=== PATIENT | female | born 1990 | race Caucasian/White ===

== ENCOUNTER 2017-02-03 06:30 | Emergency (ER) | payer OTHER ==
--- NOTE | ~2017-02-03 | CT2 ---
[facility] A Service of [facility] & [facility] RADIOLOGY TEXT RESULTS PATIENT: WALLY GUAJARDO LOCATION: [facility] : [birth year] UNIT #: [id number] AGE: [address]: Jose Calvin MD SEX: F ORDER DR: [id number] [facility] [address] [place], [place] [address] [id number] E MR#: [id number] Acc #: [id number] NAME: WALLY GUAJARDO : 1990 SEX: F STUDY DATE/TIME: 02/03/2017 7:48 UNIT: [facility] ROOM: STUDY DESCRIPTION: CT Abd and Pelv W Cont Attending Physician: Jose Calvin M.D. Ordering Physician: France Sanabria A.P.R.N. Primary Care Physician: Chen Martino M.D. MEDICAL IMAGING REPORT This report is preliminary unless electronic signature is present EXAM CT abdomen and pelvis with contrast 02/03/2017 HISTORY 26-year-old female with right lower quadrant abdominal pain, nausea, vomiting, diarrhea, dizziness, loss of appetite. Patient states symptoms began Monday but are getting worse. The patient weighs [address] abdomen and pelvis with contrast 10/12/2016. PROCEDURE 5 mm axial images from the lung bases through the lesser trochanters after intravenous contrast administration. Enteric contrast was not administered. Sagittal and coronal reformatted images were obtained. This CT examination was performed with one or more of the following radiation dose reduction techniques: automatic exposure control, adjustment of mA and/or kV according to patient size, and iterative reconstruction. FINDINGS ABDOMEN: The study is limited and attenuated by the patient's body habitus. The lung bases appear clear. The liver is diffusely and severely steatotic and is enlarged up to 23.3 cm craniocaudally, without significant change. No focal liver lesions are identified. The gallbladder is surgically absent. No biliary dilation is seen. The spleen, pancreas, adrenals and kidneys are within normal limits. The appendix is not visualized, but no pericecal inflammation is seen. Limited evaluation of bowel due to lack of enteric contrast but no focal bowel inflammatory changes are identified. There is no evidence of high-grade bowel obstruction. [facility]. [facility] A Service of [facility] & [facility] RADIOLOGY TEXT RESULTS PATIENT: WALLY GUAJARDO LOCATION: [facility] : [birth year] UNIT #: [id number] AGE: [address]: Jose Calvin MD SEX: F ORDER DR: PELVIS: 3.8 cm left ovarian cyst or cystic lesion is stable since 10/12/2016. The uterus, urinary bladder and rectum are normal. No pelvic free fluid. Degenerative disc and endplate changes are present at L5-S1. No acute or suspicious osseous abnormalities are identified. IMPRESSION 1. No acute findings are seen within the abdomen or pelvis to explain the patient's right lower quadrant abdominal pain. The appendix is not visualized but no pericecal inflammation is evident. There is no evidence of high-grade bowel obstruction. 2. 3.8 cm left ovarian cyst or cystic lesion appears unchanged from 10/12/2016. Followup pelvic ultrasound in 6 weeks would be recommended to document improvement or resolution. 3. Hepatomegaly with diffuse hepatic steatosis, unchanged. 4. Cholecystectomy. Dictated by... Michelle Kirk M.D. THIS IS AN ELECTRONICALLY VERIFIED REPORT Michelle Kirk M.D. at 02/06/2017 8:37 AM LATOYA/navid TD: 02/03/2017 10:31 JOB #: [id number] MEDICAL IMAGING REPORT Page 1 of 1 COPY
--- NOTE | ~2017-02-03 | EKG ---
PATIENT: WALLY GUAJARDO UNIT #: [id number] Ventricular Rate: 124 BPM Atrial Rate: 124 BPM P-R Interval: 134 ms QRS Duration: 78 ms Q-T Interval: 294 ms QTC Calculation(Bezet): 422 ms P Minier: 52 degrees Calculated R Minier: 33 degrees Calculated T Minier: 65 degrees Diagnosis Line: Sinus tachycardia Diagnosis Line: Nonspecific T wave abnormality Diagnosis Line: Abnormal ECG Diagnosis Line: No previous ECGs available Diagnosis Line: Confirmed by JULIA GARCÍA MD ([id number]) on Diagnosis Line: 02/04/2017 4:46:20 PM INTERPRETING MD: TERESA
[~2017-02-03 06:30] MED LIST: ALBUTEROL17 GM INH; ALDACTONE25 MG PO; AMBIEN10 MG PO; BACLOFEN20 M1 PO; BETAMETHASONE D50 GM TOP; BIRTH CONTROL PILL PO; BUSPAR30 MG PO; BYDUREON2 MG SQ; BYSTOLIC20 MG PO; CELEXA PO; CIPRO PO; CLARITIN R10 MG REDI PO; CLARITIN10 M2 PO; CLARITIN10 M3 PO; CLEOCIN HCL300 M1 PO; CYMBALTA PO; DESYREL100 MG PO; DICLOFENAC PO; DOXEPIN HCL150 MG PO; DULERA INH; DULOXETINE HCL60 MG PO; EPIPEN0.3 MG/0.1 IM; FAMVIR500 MG PO; GABAPENTIN400 M2 PO; GLUCOPHAGE500 MG PO; HYDROCODON-ACE1 EAC4 PO; IBUPROFEN400 MG PO; IMITREX25 MG PO; IMITREX4 MG/0.5 M; IMITREX6 MG/0.51 SQ; IRON1 TAB PO; KEFLEX; KLONOPIN1 MG PO; LASIX PO; LISINOPRIL-HCTZ1 T15 PO; LORTAB 5/500 TA1 TA1 PO; LORTAB 5/500 TA1 TA2 PO; LORTAB 7.5-5001 TAB PO; LUNESTA PO; MAXZIDE-25 MG T1 TAB PO; METFORMIN HCL1000 M1 PO; METFORMIN HCL500 M1 PO; METRONIDAZOLE PO; MOTRIN600 M2 PO; NEURONTIN300 MG PO; ORUDIS75 M1 DOB; PERCOCET 10/3251 TAB PO; PERCOCET10 PO; PHENERGAN25 M1 DOB; PHENERGAN25 MG PO; PROAIR HFA8.5 GM IH; PROAIR HFA8.5 GM INH; PROVERA10 MG PO; SEROQUEL300 M1 PO; SEROQUEL300 MG PO; SINGULAIR PO; SOMA PO; SYMBICORT INH; SYMBICORT80 INH; SYNTHROID0.1 MG PO; TEMAZEPAM PO; VALIUM10 MG PO; VIBRYD; VIBRYD PO; VOLTAREN75 MG PO; ZANAFLEX; ZANAFLEX4 M1 PO; ZOFRAN ODT4 MG PO; ZOFRAN PO; ZOFRAN8 MG PO; ZYRTEC
[2017-02-03 06:36] LABS: BASOPHIL# 0.1 X10e3 (0-0.3); BASOPHIL% 0.8 % (0-2.5); EOSINOPHIL% 0.4 % (0.0-7.0); HEMATOCRIT 42.4 % (35.0-45.0); LYMPHOCYTE# 2.9 X10e3 (1.0-3.5); LYMPHOCYTE% 23.7 % (17.0-45.0); MEAN CORPUSCULAR HEMOGLOBIN 29.3 PG (28-34); MEAN PLATELET VOLUME 8.8 FL (6.5-11.5); MONOCYTE# 0.8 X10e3 (0-1.0); MONOCYTE% 6.5 % (3.0-12.0); NEUTROPHIL# 8.3 X10e3 (1.5-7.1); NEUTROPHIL% 68.6 % (40-75); PLATELET COUNT 293 X10e3 (140-420); RED BLOOD COUNT 4.77 X10e (3.90-5.30); RED CELL DISTRIBUTION WIDTH 14.8 % (11.0-15.5); WHITE BLOOD COUNT 12.1 X10e3 (4.0-10.5)
[2017-02-03 06:40] LABS: DIFF IND NO
[2017-02-03 06:53] LABS: URINE SOURCE CLEAN CATCH
[2017-02-03 06:54] LABS: CULTURE INDICATED? YES; URINE APPEARANCE CLEAR; URINE BACTERIA AUWI 1+ (NEGATIVE); URINE BILIRUBIN NEG (NEG); URINE BLOOD 1+ (NEG); URINE COLOR YELLOW; URINE GLUCOSE NEG (NEG); URINE KETONE TRACE (NEG); URINE LEUKOCYTE ESTERASE 3+ (NEG); URINE NITRATE NEG (NEG); URINE PH 5.5 (5-8); URINE PROTEIN NEG (NEG); URINE SPECIFIC GRAVITY 1.012 (1.003-1.035); URINE SQUAMOUS EPITHELIAL CELL NONE SEEN /[HPF]; URINE UROBILINOGEN 0.2 MG/DL (NEG); UWBCS1 AUWI 50-100 (0-5)
[2017-02-03 07:13] LABS: AMPHETAMINE NEG (NEG); BARBITURATES NEG (NEG); BENZODIAZEPINES POS (NEG); COCAINE NEG (NEG); MARIJUANA NEG (NEG); OPIATES NEG (NEG); TRICYCLIC ANTIDEPRESSANTS POS (NEG); U METHADONE NEG (NEG)
[2017-02-03 07:13] LABS: ALBUMIN SERUM 3.9 g/dL (3.5-5.0); BILIRUBIN, DIRECT 0.1 mg/dL (0.0-0.2); BILIRUBIN,INDIRECT 0.7 mg/dL (0.0-0.9); BILIRUBIN,TOTAL 0.8 mg/dL (0.2-2.0); BUN/CREATININE RATIO 12.85; CALCIUM SERUM 9.7 mg/dL (8.4-10.2); CREATININE SERUM 0.7 mg/dL (0.6-1.4); GLOM FILT RATE Estimated 118.7 mL/min (>60); POTASSIUM 3.8 mmol/L (3.5-5.1); PROTEIN TOTAL SERUM 7.4 g/dL (6.0-8.3)
== END 2017-02-03 09:25 | disposition home or self-care (01) ==
LOC: CED 06:30
PROVIDERS: Nurse Practitioner
DX: N83.202 Unspecified ovarian cyst, left side (principal); N39.0 Urinary tract infection, site not specified; R19.7 Diarrhea, unspecified; R42 Dizziness and giddiness; I10 Essential (primary) hypertension; J45.909 Unspecified asthma, uncomplicated; F41.9 Anxiety disorder, unspecified; E66.9 Obesity, unspecified; E28.2 Polycystic ovarian syndrome; Z90.49 Acquired absence of other specified parts of digestive tract; Z88.0 Allergy status to penicillin; Z88.1 Allergy status to other antibiotic agents
CPT/HCPCS: 36415; 74177; 80048; 80076; 80307; 81003; 82150; 83690; 84703; 85025; 87086; 93005; 96361; 96374; 96375; 99284; J2270; J2405; Q9967

== ENCOUNTER 2017-04-11 17:24 | Emergency (ER) | payer OTHER ==
--- NOTE | ~2017-04-11 | CR172 ---
[facility]. [facility] A Service of [facility] & [facility] RADIOLOGY TEXT RESULTS PATIENT: WALLY GUAJARDO LOCATION: SED : 88 UNIT #: [id number] AGE: [address]: EARLENE MARIA SEX: F ORDER DR: [id number] [place] [id number] E MR#: [id number] #: [id number] NAME: WALLY GUAJARDO : 1990 SEX: F STUDY DATE/TIME: 04/11/2017 18:48 UNIT: SED ROOM: STUDY DESCRIPTION: CR Knee 3 Views Lt Attending Physician: Earlene Maria Aprn Ordering Physician: Earlene Maria Aprn Primary Care Physician: Chen Martino M.D. MEDICAL IMAGING REPORT This report is preliminary unless electronic signature is present. EXAM Left knee, 3 views INDICATIONS Left knee pain for 3 days. She twisted it 3 days ago. No comparisons are available. FINDINGS There is no fracture or joint effusion. Knee alignment is normal. The joint spaces are preserved and the soft tissue structures are unremarkable. IMPRESSION Negative. Dictated by... Christophe Milton M.D. THIS IS AN ELECTRONICALLY VERIFIED REPORT Christophe Milton M.D. at 04/13/2017 3:24 PM ARS/psc TD: 04/12/2017 01:43 JOB #: [id number] MEDICAL IMAGING REPORT Page 1 of 1
== END 2017-04-11 20:26 | disposition home or self-care (01) ==
LOC: SED 17:24
DX: S83.92XA Sprain of unspecified site of left knee, initial encounter (principal); E78.5 Hyperlipidemia, unspecified; J45.909 Unspecified asthma, uncomplicated; Z79.899 Other long term (current) drug therapy; Z91.030 Bee allergy status; Z88.8 Allergy status to other drugs, medicaments and biological substances; X50.1XXA Overexertion from prolonged static or awkward postures, initial encounter; Y92.9 Unspecified place or not applicable
CPT/HCPCS: 29530; 73562; 99283

== ENCOUNTER 2017-06-06 16:19 | Emergency (ER) | payer OTHER ==
[~2017-06-06] VITALS: Ht 182.9 cm; Wt 195.0 kg
[2017-06-06 17:55] LABS: BASOPHIL# 0.1 X10e3 (0-0.3); BASOPHIL% 0.9 % (0-2.5); EOSINOPHIL# 0.1 X10e3 (0-0.7); HEMATOCRIT 44.4 % (35.0-45.0); LYMPHOCYTE# 2.9 X10e3 (1.0-3.5); LYMPHOCYTE% 27.5 % (17.0-45.0); MEAN CELL VOLUME 86.6 FL (83-96); MEAN CORPUSCULAR HEMOGLOBIN 29.3 PG (28-34); MEAN CORPUSCULAR HGB CONC 33.8 g/dL (30-36); MEAN PLATELET VOLUME 8.6 FL (6.5-11.5); MONOCYTE# 0.7 X10e3 (0-1.0); NEUTROPHIL# 6.7 X10e3 (1.5-7.1); NEUTROPHIL% 63.6 % (40-75); PLATELET COUNT 343 X10e3 (140-420); RED BLOOD COUNT 5.12 X10e (3.90-5.30); RED CELL DISTRIBUTION WIDTH 14.4 % (11.0-15.5); WHITE BLOOD COUNT 10.5 X10e3 (4.0-10.5)
[2017-06-06 18:10] LABS: DIFF IND NO
[2017-06-06 18:20] LABS: ALBUMIN SERUM 3.9 g/dL (3.5-5.0); BILIRUBIN, DIRECT 0.1 mg/dL (0.0-0.2); BILIRUBIN,INDIRECT 0.2 mg/dL (0.0-0.9); BILIRUBIN,TOTAL 0.3 mg/dL (0.2-2.0); BUN/CREATININE RATIO 21.42; CALCIUM SERUM 9.2 mg/dL (8.4-10.2); CREATININE SERUM 0.7 mg/dL (0.6-1.4); GLOM FILT RATE Estimated 117.9 mL/min (>60); POTASSIUM 3.7 mmol/L (3.5-5.1); PROTEIN TOTAL SERUM 6.9 g/dL (6.0-8.3)
== END 2017-06-06 19:10 | disposition home or self-care (01) ==
LOC: SED 16:19
PROVIDERS: Emergency Medicine
DX: R11.2 Nausea with vomiting, unspecified (principal); R19.7 Diarrhea, unspecified; R74.0 Nonspecific elevation of levels of transaminase and lactic acid dehydrogenase [LDH]; Z91.030 Bee allergy status; Z88.8 Allergy status to other drugs, medicaments and biological substances; Z79.899 Other long term (current) drug therapy
CPT/HCPCS: 36415; 80048; 80076; 83690; 85025; 96361; 96374; 96375; 99284; C9113; J2405

== ENCOUNTER 2017-06-14 13:57 | Emergency (ER) | payer OTHER ==
[2017-06-14 16:30] LABS: URINE SOURCE CLEAN CATCH
[2017-06-14 16:32] LABS: URINE APPEARANCE CLEAR; URINE BILIRUBIN NEG (NEG); URINE BLOOD NEG (NEG); URINE COLOR YELLOW; URINE GLUCOSE NEG (NORM); URINE KETONE TRACE (NEG); URINE LEUKOCYTE ESTERASE NEG (NEG); URINE NITRATE NEG (NEG); URINE PROTEIN NEG (NEG); URINE SPECIFIC GRAVITY 1.015 (1.003-1.035); URINE UROBILINOGEN 0.2 MG/DL (NORM)
[2017-06-14 16:32] LABS: BASOPHIL# 0.1 X10e3 (0-0.3); BASOPHIL% 1.1 % (0-2.5); EOSINOPHIL# 0.1 X10e3 (0-0.7); EOSINOPHIL% 1.2 % (0.0-7.0); HEMATOCRIT 42.4 % (35.0-45.0); HEMOGLOBIN 14.3 gm/dL (12.0-16.0); LYMPHOCYTE# 3.1 X10e3 (1.0-3.5); LYMPHOCYTE% 36.3 % (17.0-45.0); MEAN CELL VOLUME 86.8 FL (83-96); MEAN CORPUSCULAR HEMOGLOBIN 29.2 PG (28-34); MEAN CORPUSCULAR HGB CONC 33.7 g/dL (30-36); MEAN PLATELET VOLUME 9.1 FL (6.5-11.5); MONOCYTE# 0.5 X10e3 (0-1.0); NEUTROPHIL# 4.8 X10e3 (1.5-7.1); NEUTROPHIL% 55.4 % (40-75); PLATELET COUNT 220 X10e3 (140-420); RED BLOOD COUNT 4.89 X10e (3.90-5.30); RED CELL DISTRIBUTION WIDTH 14.2 % (11.0-15.5); WHITE BLOOD COUNT 8.6 X10e3 (4.0-10.5)
[2017-06-14 16:33] LABS: DIFF IND NO
[2017-06-14 16:34] LABS: MICRO INDICATED? NO
[2017-06-14 16:42] LABS: ALBUMIN SERUM 3.7 g/dL (3.5-5.0); ALKALINE PHOSPHATASE 99 U/L (32-92); ALT (SGPT) 31 U/L (10-40); AST (SGOT) 42 U/L (10-42); BILIRUBIN,TOTAL 0.2 mg/dL (0.2-2.0); BLOOD UREA NITROGEN 12 mg/dL (9-23); BUN/CREATININE RATIO 17.14; CALCIUM SERUM 9.2 mg/dL (8.4-10.2); CARBON DIOXIDE 27 mmol/L (22-31); CHLORIDE 98 mmol/L (100-111); CREATININE SERUM 0.7 mg/dL (0.6-1.4); GLOM FILT RATE Estimated 117.9 mL/min (>60); GLUCOSE FASTING 146 mg/dL (70-110); LIPASE 35 U/L (22-51); POTASSIUM 3.9 mmol/L (3.5-5.1); PROTEIN TOTAL SERUM 7.7 g/dL (6.0-8.3); SODIUM 135 mmol/L (135-145)
[2017-06-14 16:53] LABS: BILIRUBIN, DIRECT <0.1 mg/dL (0.0-0.2); BILIRUBIN,INDIRECT 0.1 mg/dL (0.0-0.9)
== END 2017-06-14 17:55 | disposition home or self-care (01) ==
LOC: SED 13:57
PROVIDERS: Physician Assistant
DX: L03.311 Cellulitis of abdominal wall (principal); R11.2 Nausea with vomiting, unspecified; E11.9 Type 2 diabetes mellitus without complications; Z90.49 Acquired absence of other specified parts of digestive tract; Z79.899 Other long term (current) drug therapy; Z88.0 Allergy status to penicillin; Z88.2 Allergy status to sulfonamides
CPT/HCPCS: 36415; 80048; 80076; 81003; 83690; 85025; 87040; 96361; 96374; 99284; J1885; J2405